=== PATIENT | male | born 1965 | race African-American/Black ===

== ENCOUNTER 2017-12-11 09:37 | Day surgery (SDC) | payer OTHER ==
[2017-12-04 10:05] VITALS: BMI 30.9
[2017-12-11] MEDS ORDERED: PROPOFOL 20 ML ONE ×2 (10:29)
[2017-12-11 10:53] VITALS: TEMP 98
[2017-12-11 12:33] VITALS: BP 114/68; PULSE 77
--- NOTE | 2017-12-13 10:53 | PATH ---
Surgical Pathology Report Patient Name: CHOCO NICHOLAS [facility]. Rec. #: [id number] /Age/Gender: 1965 (Age: 52) / M Account: [id number] Location: [facility] Taken: 12/11/2017 Received: 12/11/2017 Reported: 12/13/2017 Physicians: Rosi Wei M.D. Specimen(s) Received A: CECUM JUNCTION ASCENDING COLON B: TRANSVERSE HEPATIC FLEXURE Clinical History Polyps Final Diagnosis A. CECUM JUNCTION ASCENDING COLON, BIOPSY: HYPERPLASTIC POLYP COLONIC MUCOSA SHOWING BENIGN/REACTIVE LYMPHOID AGGREGATE. B. TRANSVERSE/ HEPATIC FLEXURE, BIOPSY: HYPERPLASTIC POLYP, PREDOMINANTLY DENUDED AND MARKEDLY INFLAMED WITH GRANULATION TISSUE FORMATION. Electronically Signed Bonita Larsen M.D. Gross Description A. Received in formalin, labeled "cecum junction ascending colon" are two pieces of jameson tissue each up to 0.3 cm in greatest dimension. Entirely submitted in one cassette. B. Received in formalin, labeled "transverse/hepatic flexure" is one piece of jameson tissue measuring 0.4 cm in greatest dimension. Entirely submitted one cassette. ebram/12/11/2017
== END 2017-12-11 12:40 | disposition home or self-care (01) ==
LOC: FASU-ENDO 09:37
PROVIDERS: ATTEND Internal Medicine Gastroenterology
PROC: 0DBH8ZX Excision of Cecum, Via Natural or Artificial Opening Endoscopic, Diagnostic (ICD-10-PCS; 2017-12-11)
PROC: 0DBL8ZX Excision of Transverse Colon, Via Natural or Artificial Opening Endoscopic, Diagnostic (ICD-10-PCS; principal; 2017-12-11 11:28)
PROC: 0DBK8ZX Excision of Ascending Colon, Via Natural or Artificial Opening Endoscopic, Diagnostic (ICD-10-PCS; 2017-12-11 11:28)
DX: K57.30 Diverticulosis of large intestine without perforation or abscess without bleeding (principal); K63.5 Polyp of colon; K64.1 Second degree hemorrhoids
CPT/HCPCS: 88305-TC